=== PATIENT | female | born 1945 | race Caucasian/White ===

== ENCOUNTER 2019-12-31 15:33 | Inpatient (IN) | payer MEDICARE, OTHER ==
[~2019-12-31] VITALS: Ht 152.4 cm; Wt 81.6 kg
[~2019-12-31 15:33] MED LIST: ALPHAGAN P10 ML OPHTHALMIC; AMBEREN; ASPIRIN EC81 M1; ATORVASTATIN CA40 MG PO; BACLOFEN 10MG T10 M1; CELEXA 20 MG TA20 M1; CELEXA 20 MG TA20 MG PO; CLOBETASOL PROP50 M1 TOP; COMBIGAN EYE DR10 ML OPHTHALMIC; COZAAR 50 MG TA50 M1; CRESTOR40 MG PO; EFFIENT10 MG PO; FUROSEMIDE 40 M40 M1 PO; GABAPENTIN 100100 MG PO; GLUCOPHAGE XR500 MG PO; GLUCOPHAGE1000 MG; HUMALOG100 UNIT/1; IMDUR 60 MG TAB60 M1 PO; K-DUR 20 MEQ T20 MEQ; K-DUR10 ME1 PO; KLOR-CON 1010 MEQ PO; LANTUS SC; LOPRESSOR; LOPRESSOR 50 MG50 M1 PO; LOPRESSOR50 PO; LUMIGAN2.5 M1 OP; METOLAZONE 5 MG5 M1; METOLAZONE 5 MG5 MG; MIRALAX17 GM PO; MUCINEX TA600 MG/TA2 PO; MULTIVITAMINS1 EAC7 PO; PLAVIX 75 MG TA75 MG; POTASSIUM20 PO; PROTONIX40 M1 PO; RANEXA 500 MG500 M1 PO; RESTASIS1 EACH; RESTASIS1 EACH OPHTHALMIC; STOOL SOFTENER1 EAC2 PO; TEMOVATE30 GM TP; XALATAN2.5 ML OP; XALATAN2.5 ML OPHTHALMIC
[2019-12-31] MEDS ORDERED: TYLENOL325 M1 PO (18:43)
[2019-12-31] MEDS ORDERED: TYLENOL325 MG PO (18:44)
[2019-12-31] MEDS ORDERED: ASA81BEC PO (18:46)
[2019-12-31] MEDS ORDERED: TYLENOL EXTRA500 MG PO (18:46)
[2019-12-31] MEDS ORDERED: LIPITOR80 MG PO (18:47)
[2019-12-31] MEDS ORDERED: ALPHAGAN P5 ML LT. EYE (18:49)
[2019-12-31] MEDS ORDERED: CALCIUM500 M1 PO (18:51)
[2019-12-31] MEDS ORDERED: CELEXA 20 MG TA20 MG PO (18:52)
[2019-12-31] MEDS ORDERED: FLEXERIL PO (18:53)
[2019-12-31] MEDS ORDERED: RESTASIS MULTI5.5 ML EA. EYE (18:54)
[2019-12-31] MEDS ORDERED: COLACE100 MG PO (18:55)
[2019-12-31] MEDS ORDERED: ENOXAPARIN40 MG/0.1 SUBQ (18:56)
[2019-12-31] MEDS ORDERED: FUROSEMIDE 20 M20 MG PO (18:56)
[2019-12-31] MEDS ORDERED: NEURONTIN100 MG PO (18:57)
[2019-12-31] MEDS ORDERED: LANTUS SOL100 UNIT/1 SUBQ (19:00)
[2019-12-31] MEDS ORDERED: HUMALOG100 UNIT/1 SUBQ (19:05)
[2019-12-31] MEDS ORDERED: IMDUR 60 MG TAB60 M1 PO (19:06)
[2019-12-31] MEDS ORDERED: XALATAN2.5 M1 LT. EYE (19:06)
[2019-12-31] MEDS ORDERED: MELATONIN3 MG PO (19:34)
[2019-12-31] MEDS ORDERED: METOPROLOL TART25 MG PO (19:37)
[2019-12-31] MEDS ORDERED: DAILY VITAMIN1 EAC4 PO (19:38)
[2019-12-31] MEDS ORDERED: NITROGLYCERIN0.4 MG SUBLING (19:41)
[2019-12-31] MEDS ORDERED: OXYCODONE HCL 55 MG PO (19:43)
[2019-12-31] MEDS ORDERED: PROTONIX40 M4 PO (19:43)
[2019-12-31] MEDS ORDERED: PREDNISOLONE ACE5 ML RT. EYE (19:48)
[2019-12-31] MEDS ORDERED: BETIMOL5 ML RT. EYE (19:49)
[2019-12-31 19:50] VITALS: BP 147/48
[2019-12-31] MEDS ORDERED: AMOXICILLIN 50500 MG (20:08)
--- NOTE | 2020-01-01 01:41 | NUR ---
ASSUMED CARE AT 1930. PATIENT RESTING IN BED. S/P LT HIP FX. TURNS SELF WITH MIN ASSIST. UP WITH ONE, GAIT BELT, WALKER. STAND PIVOT TO BSC. DRESSING TO LT HIP C/D/I. HAS ABRAISION TO LT KNEE COVERED WITH MIPILEX. TAKES PILLS WHOLE WIHT WATER. PILLOW BETWEEN LEGS FOR HIP PRECAUTIONS. MEDICATED WITH APAP PER HER REQUEST. MEDICINES ENTERED INTO MAR BY PHARMACY WELL AFTER 2200. EYE DROPS AND INSULIN NOT DELIVERED TO FLOOR UNTIL AFTER 2350. BLOOD SUGAR RECHECKED AT 2333 AFTER INSULIN ORDERS ENTERED INTO COMPUTER, BECAUSE IT HAD BEEN TOO LONG SINCE ORIGINAL BLOOD SUGAR READING AT 2100 TO CONSIDER THAT READING FOR INSULIN AT 2330. BLOOD SUGAR AT 2333 WAS 144 AND NOT NEEDING SLIDING SCALE. REHAB ROUTINE DISCUSSED WITH PATIENT. MENU GIVEN AND EXPLAINED HOW TO ORDER FROM ALTERNATE MENU. HOURLY ROUNDS CONTINUE. BED ALARM ON. CALL LITE IN REACH.
[2020-01-01 06:20] LABS: HEMATOCRIT 27.1 % (37.0-47.0); HEMOGLOBIN 9.3 gm/dL (12.0-15.0); MCH 34.3 pg (26.0-34.0); MCHC 34.2 g/dL (28.0-37.0); MCV 100.3 fL (80.0-100.0); MPV 6.7 fl. (7.2-11.1); RBC 2.71 mil/uL (4.20-5.00); RDW-CV 12.9 % (10.5-14.5); WBC 4.4 thou/uL (4.0-11.0)
--- NOTE | 2020-01-01 06:48 | NUR ---
APPEARED TO SLEEP MUCH OF THE NIGHT. TURNED ON SIDE WITH PILLOW BETWEEN LEGS. GETTING READY TO ORDER BREAKFAST. NO C/O PAIN AT THIS TIME. HOURLY ROUNDS CONTINUE. BED ALARM ON. CALL LITE IN REACH.
[2020-01-01 06:54] LABS: CALCIUM 7.7 mg/dL (8.5-10.1); CREATININE 0.7 mg/dL (0.6-1.3); POTASSIUM 3.6 mmol/L (3.5-5.1)
[2020-01-01 09:04] VITALS: BP 154/54
--- NOTE | 2020-01-01 15:55 | NUR ---
ASSUMMED CARE OF PT AT 0730, PT ALERT AND ORIENTED, PT TRANSFERS WITH ASSIST OF 1, GB WALKER, AMB TO BATHROOM TO VOID, DRESSING INTACT TO LEFT HIP, DOPPLER COMPLETED OF BLE, C/O PAIN IN LEFT HIP, MEDICATED PER ORDER, PARTICIPATED IN ALL THERAPIES, HOURLY ROUNDING COMPLETED, ASSESSMENT COMPLETE, WILL CONTINUE TO MONITOR.
[2020-01-01 19:00] VITALS: BP 120/41
--- NOTE | 2020-01-01 22:21 | NUR ---
ASSUMED CARE AT 1930, PATIENT RESTING IN BED. TURNS SELF EASILY. AND HAS PILLOW BETWEEN LEGS S/P LT HIP ORIF. LT HIP DRESSING D/I, SOME SHAWDOW DRAINAGE. BRUISING ON LT HIP CONTINUES. TAKES PILLS WHOLE WITH WATER, GIVES SELF HER EYE GTTS PER ORDERS, WITH TIME BETWEEN DROPS. NO C/O PAIN. NO SLIDING SCALE INSULIN GIVEN AT HS PER ORDER (ONLY IF OVER 200). HOURLY ROUNDS CONTINUE. BED ALARM ON. CALL LITE IN REACH.
--- NOTE | 2020-01-02 05:21 | NUR ---
SLEPT MUCH OF NIGHT. SAT ON SIDE OF BED FOR A WHILE WITH C/O INDIGESTION. TOOK [place] PER ORDER. VOIDED PER TOILET. UP WITH CGA, GAIT BELT, WALKER. HOURLY ROUNDS CONTINUE. BED ALARM ON. CALL LITE IN REACH.
[2020-01-02 08:05] VITALS: BP 136/46
--- NOTE | 2020-01-02 15:49 | NUR ---
ASSUMMED CARE OF PT AT 0730, PT ALERT AND ORIENTED, TRANSFERS WITH ASSIST OF 1, GB WALKER, AMB TO BATHROOM, TAKING FOOD AND FLUIDS WELL, C/O PAIN IN LEFT LEG, MEDICATED PER ORDER, DRESSING TO LEFT LEG INTACT, UP IN CHAIR AT INTERVALS, HIP PRECAUTIONS MAINTAINED, HOURLY ROUNDING COMPLETED, ASSESSMENT COMPLETE, WILL CONTINUE TO MONITOR.
[2020-01-02 17:59] LABS: URINE BILIRUBIN NEGATIVE (Negative); URINE BLOOD NEGATIVE (Negative); URINE CLARITY CLEAR; URINE COLOR YELLOW; URINE GLUCOSE-RANDOM NEGATIVE (Negative); URINE KETONES NEGATIVE (Negative); URINE LEUKOCYTES NEGATIVE (Negative); URINE NITRITE NEGATIVE (Negative); URINE PROTEIN NEGATIVE (Negative)
[2020-01-02 19:33] VITALS: BP 121/43
--- NOTE | 2020-01-02 23:41 | NUR ---
ASSUMED CARE AT 1930. PATIENT RESTING IN BED. UP WITH ONE, GAIT BELT, WALKER. VOIDS PER TOILET. DRESSING TO LT HIP INTACT, BRUSING NOTED AROUND IT. LT KNEE DRESSING C/D/I. HAS HAD PROBLEMS GETTING COMFORTABLE THIS EVENING, TOOK APAP WITHOUT RELIEF AND JUST TOOK OXY. REPOSITIONED, PILLOW BETWEEN LEGS, HIP PRECAUTIONS MAINTAINED. CALL LITE IN REACH. BED ALARM ON. HOURLY ROUNDS CONTINUE.
--- NOTE | 2020-01-03 05:29 | NUR ---
ABLE TO GET PAIN RELIEF AFTER OXY. APPEARED SLEEPING AFTER THAT. UP WITH ONE, GAIT BELT, WALKER, VOIDED PER TOILET. RETURNED TO LIE ON BACK FOR A WHILE WITH HEELS OFFLOADED. NO FURTHER C/O PAIN. CALL LITE IN REACH. BED ALARM ON. HOURLY ROUNDS CONTINUE.
[2020-01-03 08:47] VITALS: BP 141/44
--- NOTE | 2020-01-03 10:57 | NUR ---
Nutrition: Pt admitted to rehab with Lt hip surgery. H/o DM, HTN, CAD. Heart Healthy diet, eating 100%. Meds: insulin, MVI. Wt stable at 183#. Consult for wound - abrasion on Lt knee. No albumin recorded. Consulder low nutrition risk.
--- NOTE | 2020-01-03 14:19 | NUR ---
INITIAL ASSESSMENT: PATIENT ADMITTED TO THE [facility] ON 12/31/19 WITH A DIAGNOSIS OF LEFT HIP FRACTURE. PT ALERT AND ORIENTED. PT ACTIVE, INDEPENDENT, AND DRIVES PRIOR TO ADMIT. PT RESIDES AT HOME WITH SON AND SPOUSE. PT'S SPOUSE IS ABLE TO ASSIST THE PT IF NEEDED AT D/C. PT'S SON IS AN [id number]. PT USED A CANE (IN PUBLIC) FOR MOBILITY PRIOR TO ADMIT. PT ALSO OWNS A WALKER AND BEDSIDE COMMODE, BUT DID NOT USE THEM PRIOR TO ADMIT. PT HAS 0 HX OF HH. PT HAS HX OF SNF AT [facility]. CM ORIENTED PT TO THE REHAB UNIT AND PROCESS, TEAM CONFRENCE, RESIDENTS RIGHTS INFO, AND TO THE ROLE OF CM. CM WILL REMAIN AVAILABLE TO ASSIST WITH D/C PLANNING.
--- NOTE | 2020-01-03 17:53 | NUR ---
PT WORKED WITH THERAPIES. PRN PAIN MEDICATION GIVEN PER PT REQUEST. UP WITH ASSIST X1, GAIT BELT, AND WALKER. REPORTS INCREASED PAIN WITH MOVEMENT/AMBULATION.
[2020-01-03 19:00] VITALS: BP 114/27
[2020-01-03 20:45] VITALS: BP 102/50
--- NOTE | 2020-01-03 20:50 | NUR ---
RESTING QUIETLY IN BED AND WATCHING TV. DECLINED OFFER OF A SNACK. HAS MAXIMINO CRACKERS AT BEDSIDE. TOOK MEDICATIONS WHOLE A FEW AT A TIME WITH WATER. CALL LIGHT WITHIN REACH. OXY IR GIVEN FOR COMPLAINT OF LEFT HIP PAIN RATED "8".
--- NOTE | 2020-01-04 05:10 | NUR ---
OXY IR GIVEN AGAIN AT 0125 FOR COMPLAINT OF LEFT HIP PAIN WITH RELIEF. TURNS SELF IN BED. HOURLY ROUNDING IN PROGRESS.
[2020-01-04 08:00] VITALS: BP 140/40
--- NOTE | 2020-01-04 14:56 | NUR ---
CM SPOKE TO THE PT TO DISCUSS ANY QUESTIONS OR CONCERNS FOR TOMORROWS TEAM CONFRENCE MEETING. PT HAS NO QUESTIONS OR CONCERNS AT THIS TIME. CM TO F/U WITH PT TOMORROW AFTER THE MEETING.
--- NOTE | 2020-01-04 15:32 | NUR ---
ASSUMMED CARE OF PT AT 0730, PT ALERT AND ORIENTED , PT TRANSFERS WITH SBA, GB WAKER, AMBULATES TO TOILET, DRESSING INTACT TO LEFT HIP INCISION, LARGE BM X 1 THIS SHIFT, C/O SLIGHT NAUSEA BUT DID NOT NEED MEDICATION, C/O PAIN IN LEFT KNEE, X/R COMPLETED, KNEE BRUISED, MEDICATED PER ORDER FOR PAIN, TAKING FOOD AND FLUIDS WELL, PARTICIPATED IN ALL THERAPIES, HOURLY ROUNDING COMPLETED, ASSESSMENT COMPLETE, WILL CONTINUE TO MONITOR.
[2020-01-04 19:00] VITALS: BP 118/41
--- NOTE | 2020-01-04 20:15 | NUR ---
RESTING QUIETLY IN BED AND WATCHING TV. CALL LIGHT WITHIN REACH.
--- NOTE | 2020-01-05 05:02 | NUR ---
OXY IR GIVEN AT 0128 FOR COMPLAINT OF LEFT HIP PAIN WITH RELIEF. RESTED QUIETLY. HOURLY ROUNDING IN PROGRESS.
[2020-01-05 07:30] VITALS: BP 126/43
--- NOTE | 2020-01-05 14:42 | NUR ---
TEAM CONFRENCE MEETING HELD TODAY. CM AND REHAB PHYSICIAN INFORMED PT OF THE MEETING AND PLAN TO RE-TEAM AND HAVE PT REMAIN ON THE UNIT AND CONTINUE THERAPIES FOR ANOTHER WEEK. PT IN AGREEMENT WITH THE PLAN. PT PROGRESING TOWARDS GOALS, BUT BARRIERS ARE HIP PAIN, FUNCTIONAL BALANCE, AND DECREASED STANDING BALANCE. CM WILL REMAIN AVAILABLE TO ASSIST AND FOLLOW FOR D/C PLANNING.
--- NOTE | 2020-01-05 18:15 | NUR ---
ASSESSMENT COMPLETED DOCUMENTED THIS MORNING. OXY 5 MG X3 TODAY FOR C/O LEFT HIP PAIN. UP AND PARTICIPATING WITH THERAPY, PROGRESSING WELL. IN TO VISIT THIS EVENING AND INFORMED STAFF THAT THE [facility] FROM [facility] WILL BE HERE TOMORROW WITH A BALLOT FOR PATIENT TO VOTE, INFORMATION DESK NOTIFIED.
[2020-01-05 19:00] VITALS: BP 114/28
[2020-01-06 05:00] LABS: HEMATOCRIT 25.8 % (37.0-47.0); HEMOGLOBIN 8.8 gm/dL (12.0-15.0); MCH 34.3 pg (26.0-34.0); MCV 100.8 fL (80.0-100.0); MPV 6.4 fl. (7.2-11.1); RBC 2.56 mil/uL (4.20-5.00); RDW-CV 13.1 % (10.5-14.5); WBC 5.4 thou/uL (4.0-11.0)
[2020-01-06 05:16] LABS: ALBUMIN 2.2 g/dL (3.4-5.0); CALCIUM 7.8 mg/dL (8.5-10.1); CREATININE 0.8 mg/dL (0.6-1.3); MAGNESIUM 2.3 mg/dL (1.8-2.4); POTASSIUM 3.7 mmol/L (3.5-5.1); TOTAL BILIRUBIN 0.6 mg/dL (<0.1-1.0); TOTAL PROTEIN 5.3 g/dL (6.4-8.2)
--- NOTE | 2020-01-06 07:00 | NUR ---
ASSUMED PT CARE AT 1930. ASSESSMENT COMPLETED CHARTED. ABLE TO MAKE NEEDS KNOWN. UP WITH 1 ASSIST TO BATHROOM. C/O LEFT HIP PAIN AND GAVE PRN PAIN MEDICATIONS PER EMAR. RESTING IN BED MOST OF THE NIGHT. PULLED UP PATIENT IN BED A COUPLE TIMES. WILL CONTINUE TO MONITOR.
[2020-01-06 08:49] VITALS: BP 120/50
--- NOTE | 2020-01-06 18:57 | NUR ---
ASSESSMENT COMPLETED DOCUMENTED THIS MORNING. PATIENT IS PROGRESSING AND PARTICIPATING WITH THERAPIES. OXY 5MG GIVEN X2 TODAY WITH RELIEF NOTED. NO ISSUES NOTED.
[2020-01-06 20:10] VITALS: BP 128/43
--- NOTE | 2020-01-06 20:10 | NUR ---
SITTING UP IN RECLINER WATCHING TV. ANXIOUS, IRRITABLE, DEMANDING. STATES ASKED TO GO TO BED OVER A HOUR AGO. EXPLAINED THAT WASN'T AWARE OF THIS AND ABOUT SHIFT CHANGE. PAIN MEDICATION GIVEN FOR COMPLAINT OF LEFT HIP PAIN RATED "9". AMBULATED TO THE BATHROOM WITH STANDBY, GAITBELT, WALKER. LIMPS ON LEFT LEG SOME. LEFT HIP DRESSING DRY/INTACT. HAD A MODERATE BM, PARTIALLY FORMED, PARTIALLY LOOSE. DECIDED TO NOT TAKE COLACE TONIGHT. CALL LIGHT WITHIN REACH.
[2020-01-07 08:00] VITALS: BP 116/45
--- NOTE | 2020-01-07 15:35 | NUR ---
ASSUMMED CARE OF PT AT 0730, PT ALERT AND ORIENTED, PT TRANSFERS WITH ASSIST OF 1, GB WALKER, AMB TO BATHROOM, DRESSING TO LEFT HIP INTACT, MEDICATED FOR LEFT HIP PAIN X 2 THIS SHIFT, TAKING FOOD AND FLUIDS WELL, PARTICIPATED IN ALL THERAPIES, HOURLY ROUNDING COMPLETED, ASSESSMENT COMPLETE, WILL CONTINUE TO MONITOR.
[2020-01-07 20:13] VITALS: BP 114/32
[2020-01-08 04:22] LABS: HEMATOCRIT 25.9 % (37.0-47.0); HEMOGLOBIN 8.6 gm/dL (12.0-15.0); MCH 34.2 pg (26.0-34.0); MCHC 33.3 g/dL (28.0-37.0); MCV 102.8 fL (80.0-100.0); MPV 6.6 fl. (7.2-11.1); RBC 2.52 mil/uL (4.20-5.00); RDW-CV 13.3 % (10.5-14.5); WBC 5.3 thou/uL (4.0-11.0)
[2020-01-08 05:15] LABS: ALBUMIN 2.2 g/dL (3.4-5.0); CALCIUM 7.9 mg/dL (8.5-10.1); CREATININE 0.7 mg/dL (0.6-1.3); MAGNESIUM 2.3 mg/dL (1.8-2.4); POTASSIUM 3.7 mmol/L (3.5-5.1); TOTAL BILIRUBIN 0.5 mg/dL (<0.1-1.0); TOTAL PROTEIN 5.3 g/dL (6.4-8.2)
[2020-01-08 08:05] VITALS: BP 144/47
[2020-01-08 14:05] LABS: URINE BILIRUBIN NEGATIVE (Negative); URINE BLOOD NEGATIVE (Negative); URINE CLARITY SL CLOUDY; URINE COLOR YELLOW; URINE GLUCOSE-RANDOM NEGATIVE (Negative); URINE KETONES NEGATIVE (Negative); URINE LEUKOCYTES-REFLEX NEGATIVE (Negative); URINE NITRITE-REFLEX NEGATIVE (Negative); URINE PROTEIN TRACE (Negative); URINE SPECIFIC GRAVITY 1.015 (1.005-1.030)
[2020-01-08 14:11] LABS: CASTS None Seen /LPF (None Seen); MUCUS 4-6 Moderate strn/LPF (None Seen); SQUAMOUS 4-10 Moderate /LPF (0-3); URINE RBC 0-2 Rare /HPF (0-2); URINE WBC-REFLEX 0-5 Rare /HPF (0-5)
[2020-01-08 14:12] LABS: AMORPHOUS PHOSPHATES Moderate /LPF (None Seen); CRYSTALS None Seen /LPF (None Seen)
--- NOTE | 2020-01-08 18:36 | NUR ---
ASSESSMENT COMPLETED DOCUMENTED THIS MORNING. OXY 5MG X 2 THIS SHIFT WITH PAIN RELIEF STATED. UP TO BR AND HAS BEEN CONT OF B&B WITH LARGE BM NOTED. IN TO VISIT.
[2020-01-09 07:54] VITALS: BP 127/40
--- NOTE | 2020-01-09 18:06 | NUR ---
PATIENT UP IN RECLINER AT THE BEDSIDE ALL DAY, ASSISTED TO THE BR AND HAS BEEN CONTINENT OF B&B. IN THIS AFTERNOON AND BROUGHT LUNCH IN TO EAT WITH PATIENT.
[2020-01-09 19:25] VITALS: BP 129/43
[2020-01-10 08:00] VITALS: BP 146/40
--- NOTE | 2020-01-10 15:10 | NUR ---
ASSUMMED CARE OF PT AT 0730, PT ALERT AND ORIENTED, PT TRANSFERS WITH SBA GB WALKER, PT DOES NEED MODERATE ASSIST TO GO FROM LYING TO SITTING ON EDGE OF BED, PT C/O PAIN IN LEFT HIP, [facility] CALLED REGARDING INCISION CARE, BORDERED DRESSING REMOVED, ADHESIVE DRESSING LEFT IN PLACE PER RECOMMENDATION, BP LOW THIS AM, PHYSICIAN ADJUSTED MEDICATION, AMBULATES TO BATHROOM TO VOID, PARTICIPATED IN ALL THERAPIES, HOURLY ROUNDING COMPLETED, ASSESSMENT COMPLETE, WILL CONTINUE TO MONITOR.
[2020-01-10 19:00] VITALS: BP 111/33
--- NOTE | 2020-01-11 06:52 | NUR ---
ASSUMED CARES AT 1920. ALERT AND ORIENTED. PLEASANT. PAIN MEDS GIVEN FOR LEFT HIP PAIN. SBA WITH GAIT BELT AND WALKER. UP TO BR. METOPROLOL HELD FOR BP: 111/33. HR: 58. PT DENIED ANY DIZZINESS. SLEPT WELL. CALL LIGHT IN REACH AND BED ALARM ON.
[2020-01-11 08:00] VITALS: BP 129/35; BP 143/69
[2020-01-11 12:36] LABS: URINE BILIRUBIN NEGATIVE (Negative); URINE BLOOD NEGATIVE (Negative); URINE CLARITY CLEAR; URINE COLOR YELLOW; URINE GLUCOSE-RANDOM NEGATIVE (Negative); URINE KETONES NEGATIVE (Negative); URINE LEUKOCYTES-REFLEX 1+ (Negative); URINE NITRITE-REFLEX NEGATIVE (Negative); URINE PROTEIN NEGATIVE (Negative)
[2020-01-11 12:44] LABS: SQUAMOUS 4-10 Moderate /LPF (0-3)
[2020-01-11 12:45] LABS: BACTERIA-REFLEX 1-9 Few /HPF (None Seen); CRYSTALS None Seen /LPF (None Seen); HYALINE CASTS 0-3 Few /LPF (None Seen); MUCUS None Seen strn/LPF (None Seen); URINE RBC 0-2 Rare /HPF (0-2); URINE WBC-REFLEX 0-5 Rare /HPF (0-5)
--- NOTE | 2020-01-11 15:02 | NUR ---
ASSUMMED CARE OF PT AT 0730, PT ALERT AND ORIENTED, PT TRANSFERS WITH SBA. GB WALKER, AMBULATES TO BATHROOM, C/O PAIN IN HIP, MEDICATED PER ORDER, BP LOW THIS AM 111/33, METOPROLOL AND IMDUR HELD, PT IN THERAPY GYM AND BECAME WEAK AND DIAPHORETIC, BLOOD SUGER 167, BP 120/40, PT RESTED AND STATED SHE FELT BETTER AND WAS ABLE TO CONTINUE WITH THERAPY, PHYSICIAN INFORMED ON ROUNDS OF LOW BP AND HOLDING OF MEDS, ORDERS RECIEVED, SALINE LOCK STARTED IN RIGHT WRIST, FLUIDS GIVEM, UA SENT TO LAB, NEEDS ENCOURAGEMENT TO INCREASE FLUIDS,HIP INCISION OPEN TO AIR, APETITE FAIR, PARTICIPATED IN ALL THERAPIES, HOURLY ROUNDING COMPLETED, ASSESSMENT COMPLETE, WILL CONTINUE TO MONITOR.
--- NOTE | 2020-01-11 17:40 | NUR ---
CM SPOKE TO THE PT TO DISCUSS ANY QUESTIONS OR CONCERNS THAT SHE MAY HAVE FOR TOMORROWS MEETING. PT HAS NO QUESTIONS OR CONCERNS AT THIS TIME. CM AND PHYSICIAN TO F/U WITH PT AFTER TOMORROWS MEETING.
[2020-01-11 20:35] VITALS: BP 143/41
--- NOTE | 2020-01-12 05:57 | NUR ---
ASSUMED CARE AT 1920. ALERT AND ORIENTED. PLEASANT. PAIN MED GIVEN FOR LEFT HIP PAIN. SALINE LOCK TO RIGHT WRIST. SBA WITH GAIT BELT AND WALKER. UP TO BATHROOM. NO ISSUES OVERNIGHT. CALL LIGHT IN REACH AND BED ALARM ON.
[2020-01-12 08:00] VITALS: BP 142/48
[2020-01-12] MEDS ORDERED: IMDUR 30 MG TAB30 M1 PO (10:24)
[2020-01-12 15:26] LABS: HEMATOCRIT 26.9 % (37.0-47.0); MCH 34.1 pg (26.0-34.0); MCHC 33.5 g/dL (28.0-37.0); MCV 101.8 fL (80.0-100.0); MPV 6.1 fl. (7.2-11.1); RBC 2.65 mil/uL (4.20-5.00); RDW-CV 13.9 % (10.5-14.5); WBC 4.5 thou/uL (4.0-11.0)
--- NOTE | 2020-01-12 15:46 | NUR ---
ASSUMMED CARE OF PT AT 0730, PT ALERT AND ORIENTED, PT TRANSFERS WITH SBA, GB WALKER, ORDER FOR PT TO BE MOD I IN ROOM, PT EDUCATED, PT C/O PAIN IN LEFT LEG, MEDICATED PER ORDER, SALINE LOCK TO RIGHT WRIST, PT TAKING FOOD AND FLUIDS WELL, INCISION HEALING WITH CLEAR ADHESIVE INTACT, PARTICIPATED IN ALL THERAPY, HOURLY ROUNDING COMPLETED, ASSESSMENT COMPLETE, WILL CONTINUE TO MONITOR.
[2020-01-12 15:53] LABS: CREATININE 0.8 mg/dL (0.6-1.3); POTASSIUM 3.7 mmol/L (3.5-5.1)
[2020-01-12 20:37] VITALS: BP 131/30
[2020-01-13 08:00] VITALS: BP 152/43
[2020-01-13 09:11] VITALS: BP 131/30
--- NOTE | 2020-01-13 13:18 | NUR ---
CM SPOKE TO THE PT TO DISCUSS D/C PLANNING AND HER D/C HOME TODAY WITH HH. PT INFORMS THAT SHE HAS A FRIEND AT A HH COMPANY AND WOULD LIKE TO USE THEM. HOWEVER PT UNABLE TO RECALL THE NAME OF THE COMPANY AND DOES NOT HAVE CONTACT INFO FOR THE FRIEND. CM INFORMED PT THAT [facility] PROVIDES SERIV[facility] WITHIN HER AREA ([place], [place]). PT TO D/C HOME WITH [facility]. CM FAXED [facility] PT'S CLINICAL INFO AND D/C ORDERS. [facility] WILL CONTACT THE PT TO ARRANGE A TIME TO VISIT. PT'S SPOUSE HERE AND WILL PROVIDE PT TRANSPORT HOME. CM WILL REMAIN AVAILABLE TO ASSIST AND FOLLOW NEEDED. [facility] PHONE: [phone] FAX: [phone]
[2020-01-13 13:27] VITALS: BP 131/30
--- NOTE | 2020-01-13 15:45 | NUR ---
PT TAKEN TO CARE VIA WC WITH ALL BELONGINGS. AT BS
== END 2020-01-13 16:10 | disposition home health service (06) | DRG 536 ==
LOC: M.REH 15:33
PROVIDERS: Family Medicine; Internal Medicine; ADMIT Physical Medicine & Rehabilitation; ATTEND Physical Medicine & Rehabilitation
DX: S72.002A Fracture of unspecified part of neck of left femur, initial encounter for closed fracture (principal); I10 Essential (primary) hypertension; I25.10 Atherosclerotic heart disease of native coronary artery without angina pectoris; E78.5 Hyperlipidemia, unspecified; G47.33 Obstructive sleep apnea (adult) (pediatric); W18.39XA Other fall on same level, initial encounter; K21.9 Gastro-esophageal reflux disease without esophagitis; E11.51 Type 2 diabetes mellitus with diabetic peripheral angiopathy without gangrene; G89.29 Other chronic pain; M54.9 Dorsalgia, unspecified; E66.9 Obesity, unspecified; Z88.1 Allergy status to other antibiotic agents; Z95.5 Presence of coronary angioplasty implant and graft; Y93.89 Activity, other specified; Y92.89 Other specified places as the place of occurrence of the external cause; Y99.8 Other external cause status; Z88.8 Allergy status to other drugs, medicaments and biological substances